=== PATIENT | female | born 2000 | race African-American/Black ===

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

== ENCOUNTER 2021-01-15 12:51 | Emergency (ER) | payer OTHER, SELFPAY ==
[2021-01-15 13:09] VITALS: BP 121/84; PULSE 114; RESP 18; TEMP 37; O2SAT 100
--- NOTE | 2021-01-15 13:39 | ED.URI ---
HPI - URI/Sore Throat General Chief Complaint: Upper Respiratory Infection Stated Complaint: sore throat/ear ache Time Seen by Provider: 01/15/21 13:30 Source: patient Mode of arrival: ambulatory Limitations: no limitations History of Present Illness HPI Narrative: Mendel Morales is a 20 yo female with no PMH who comes [facility] with drainage of right ear that is yellowish-brown in color. Has been draining for about 5 days. Has had increased pain in the ear as well as in the throat and with swallowing. Rates the pain as 9/10. Related Data Home Medications Medication Instructions Recorded Confirmed amitriptyline 25 mg PO HS 11/20/20 01/15/21 medroxyprogesterone 150 mg IM Q3M 11/20/20 01/15/21 topiramate 100 mg PO DAILY 11/20/20 01/15/21 Allergies Allergy/AdvReac Type Severity Reaction Status Date / Time No Known Allergies Allergy Verified 01/15/21 13:14 Review of Systems Review of Systems: Narrative: CONSTITUTIONAL: Denies fever, chills, sweats. EYES: Denies visual changes, redness, discharge. ENT: Denies rhinorrhea, congestion, sore throat, right otalgia. Has sore throat CARDIOVASCULAR: Denies chest pain, palpitations, edema. RESPIRATORY: Denies dyspnea, wheezing, cough GASTROINTESTINAL: Denies abdominal pain, nausea, vomiting, diarrhea. GENITOURINARY: Denies dysuria, hematuria, abnormal discharge SKIN: Denies rash or itching. NEUROLOGIC: Denies numbness, or focal weakness. PSYCHIATRIC: Denies anxiety or depression. PMFSH Past Medical History Medical History (Updated 01/15/21 @ 13:53 by Lizette Perez CNP) Ear pain Family History Family History Mother Diabetes mellitus Hypertension Social History Social History (Updated 01/15/21 @ 13:47 by Lizette Perez CNP) Smoking status: Never smoker Alcohol intake: never Gender identity (if verbalized by the patient): Female Comments At time of signature, I agree with nursing past medical, surgical, social and family history. There is no relevant family history pertinent to the presenting complaint. Exam Narrative: Exam Narrative: GENERAL: This is a well-nourished, well-developed patient, in mild distress. HEAD: normocephalic, atraumatic. EYES: . Sclera clear/white. Vision is grossly intact. EARS: External ears normal, auditory canals clear on L, red with white area in ear canal with yellowish drainage,, TM normal without perforation. Hearing grossly intact. NOSE: External nose normal without nasal discharge, nares without redness, no rhinorrhea. THROAT: Mucous membranes moist, posterior pharynx erythema with no exudate NECK: Neck supple, CARDIOVASCULAR: Regular rate and rhythm without murmurs, gallops, or rubs. RESPIRATORY: Clear to auscultation. Breath sounds equal bilaterally. No wheezes, rales, or rhonchi. GASTROINTESTINAL: Abdomen soft, SKIN: warm, intact with no suspicious lesions or rash, good texture and turgor. NEURO: awake, alert, and oriented to person, place and time. There were no obvious focal neurologic abnormalities. Steady gait EXTREMITIES: Normal range of motion. BACK: Nontender without deformity Course Course Emergency Course: Patient comes to [facility] for complaints of right ear pain with drainage x5 days Started on eardrops to the right ear as well as amoxicillin twice daily Vital Signs Vital signs: Vital Signs Temperature 98.6 F 01/15/21 13:09 Pulse Rate 114 H 01/15/21 13:09 Respiratory Rate 18 01/15/21 13:09 Blood Pressure 121/84 01/15/21 13:09 Pulse Oximetry 100 01/15/21 13:09 Temperature 98.6 F 01/15/21 13:09 Pulse Rate 114 H 01/15/21 13:09 Respiratory Rate 18 01/15/21 13:09 Blood Pressure 121/84 01/15/21 13:09 Pulse Oximetry 100 01/15/21 13:09 MDM - URI/Sore Throat Differential Diagnosis Differential diagnosis: Likely upper respiratory infection, otitis media and other Critical Care Time Critical Ca
== END 2021-01-15 13:59 | disposition home or self-care (01) ==
PROVIDERS: Emergency Provider Nurse Practitioner; PCP Family Medicine
DX: H60.311 Diffuse otitis externa, right ear (principal); J02.9 Acute pharyngitis, unspecified; M41.9 Scoliosis, unspecified
CPT/HCPCS: 99213; G0463

== ENCOUNTER 2021-04-30 17:15 | Emergency (ER) | payer OTHER, SELFPAY | END 2021-04-30 17:25 | disposition left against medical advice (07) | PROVIDERS: Emergency Provider Internal Medicine Hematology & Oncology | DX: Z53.21 Procedure and treatment not carried out due to patient leaving prior to being seen by health care provider (principal) | CPT/HCPCS: 99199 ==

== ENCOUNTER 2021-05-01 08:18 | Emergency (ER) | payer OTHER, SELFPAY ==
[2021-05-01 08:33] VITALS: BP 137/85; PULSE 100; RESP 16; TEMP 37.1; O2SAT 99
[2021-05-01 08:37] VITALS: BP 137/85; PULSE 100; RESP 16; TEMP 37.1; O2SAT 99
--- NOTE | 2021-05-01 08:46 | ED.FEMALEGU ---
HPI - Female Genitourinary General Chief complaint: Urogenital-Female Stated complaint: Side and back Pain Time Seen by Provider: 05/01/21 08:46 Source: patient Mode of arrival: ambulatory Limitations: no limitations History of Present Illness HPI Narrative: Mendel Morales is a 20 yo female with no PMH who comes to urgent care with complaints of left side pain and left lower abdomen pain with urination, denies any vaginal discharge, denies any burning with urination Related Data Home Medications Medication Instructions Recorded Confirmed amitriptyline 25 mg PO HS 11/20/20 05/01/21 medroxyprogesterone 150 mg IM Q3M 11/20/20 05/01/21 topiramate 100 mg PO DAILY 11/20/20 05/01/21 Allergies Allergy/AdvReac Type Severity Reaction Status Date / Time No Known Allergies Allergy Verified 05/01/21 08:32 Review of Systems Review of Systems: CONSTITUTIONAL: Denies fever, chills, sweats. EYES: Denies visual changes, redness, discharge. ENT: Denies rhinorrhea, congestion, sore throat, otalgia. CARDIOVASCULAR: Denies chest pain, palpitations, edema. RESPIRATORY: Denies dyspnea, wheezing, cough GASTROINTESTINAL: Denies abdominal pain, nausea, vomiting, diarrhea. GENITOURINARY: Has dysuria, hematuria, abnormal discharge SKIN: Denies rash or itching. NEUROLOGIC: Denies numbness, or focal weakness. PSYCHIATRIC: Denies anxiety or depression. PMFSH Past Medical History Medical History (Updated 05/01/21 @ 09:00 by Lizette Perez CNP) Ear pain No acute medical problems Family History Family History Mother Diabetes mellitus Hypertension Social History Social History Smoking status: Never smoker Alcohol intake: never Gender identity (if verbalized by the patient): Female Comments At time of signature, I agree with nursing past medical, surgical, social and family history. There is no relevant family history pertinent to the presenting complaint. Exam Narrative: GENERAL: This is a well-nourished, well-developed patient, in mild distress. HEAD: normocephalic, atraumatic. EYES: Sclera clear/white. Vision is grossly intact. EARS: External ears normal, auditory canals clear and without drainage, TMs normal without perforation. Hearing grossly intact. NOSE: External nose normal without nasal discharge, nares without redness, no rhinorrhea. THROAT: Mucous membranes moist, NECK: Neck supple, non-tender CARDIOVASCULAR: Regular rate and rhythm without murmurs, gallops, or rubs. RESPIRATORY: Clear to auscultation. Breath sounds equal bilaterally. No wheezes, rales, or rhonchi. GASTROINTESTINAL: Abdomen soft, nontender SKIN: warm, intact with no suspicious lesions or rash, good texture and turgor. NEURO: awake, alert, and oriented to person, place and time. There were no obvious focal neurologic abnormalities. Steady gait EXTREMITIES: Normal range of motion. BACK: Nontender without deformity Course Course Emergency Course: Patient here with left-sided discomfort and lower side discomfort intermittently; no burning with urination but states that symptoms similar to what she had in the past with a UTI Given Keflex twice daily x3 days-patient to follow-up with primary care physician or [facility] if pain continues Vital Signs Vital signs: Vital Signs Temperature 98.7 F 05/01/21 08:33 Pulse Rate 100 05/01/21 08:33 Respiratory Rate 16 05/01/21 08:33 Blood Pressure 137/85 05/01/21 08:33 Pulse Oximetry 99 05/01/21 08:33 Temperature 98.7 F 05/01/21 08:37 Pulse Rate 100 05/01/21 08:37 Respiratory Rate 16 05/01/21 08:37 Blood Pressure 137/85 05/01/21 08:37 Pulse Oximetry 99 05/01/21 08:37 MDM - Female Genitourinary Differential Diagnosis Differential diagnosis: Likely urinary tract infection, cystitis and other Lab Data Labs: Urine Glucose Negative
== END 2021-05-01 09:15 | disposition home or self-care (01) ==
PROVIDERS: Emergency Provider Nurse Practitioner; PCP Family Medicine
DX: R30.0 Dysuria (principal)
CPT/HCPCS: 81003; 99213; G0463

== ENCOUNTER 2021-09-04 14:50 | Emergency (ER) | payer OTHER, SELFPAY ==
[2021-09-04 15:03] VITALS: BP 128/74; PULSE 102; RESP 16; TEMP 37.6; O2SAT 100
--- NOTE | 2021-09-04 15:07 | ED.URI ---
HPI - URI/Sore Throat General Chief Complaint: Upper Respiratory Infection Stated Complaint: flu symptoms Time Seen by Provider: 09/04/21 15:07 Source: patient, RN notes reviewed and old records reviewed Mode of arrival: ambulatory Limitations: no limitations History of Present Illness HPI Narrative: 20-year-old female presents to the [facility] with complaints of a sore throat without signs drainage for almost a week. Had been using throat drops. Denies fevers, chest pain, abdominal pain. No nausea vomiting or diarrhea. Related Data Home Medications Medication Instructions Recorded Confirmed topiramate 100 mg PO DAILY 11/20/20 09/04/21 amitriptyline 50 mg PO DAILY 09/04/21 09/04/21 norethindrone-e.estradiol-iron 1 tablet PO DAILY 09/04/21 09/04/21 [Aurovela Fe 1.5/30 (28)] Allergies Allergy/AdvReac Type Severity Reaction Status Date / Time No Known Allergies Allergy Verified 09/04/21 15:10 Review of Systems Review of Systems: All systems reviewed & are unremarkable except as noted in HPI and below Constitutional: Constitutional: Reports no additional constitutional complaints, Denies chills, Denies fever(s) and Denies headache(s) Eyes: Eyes: Reports no additional eye complaints ENT: Reports as per HPI, Denies vertigo, Denies dizziness, Denies headache(s), Denies nasal congestion and Reports sore throat Cardiovascular: Cardiovascular: Reports no additional cardiovascular complaints, Denies chest pain, Denies syncope, Denies rapid heart rate and Denies dyspnea Respiratory: Respiratory: Reports no additional respiratory complaints, Denies cough, Denies dyspnea and Denies wheezing Gastrointestinal: Gastrointestinal: Reports no additional gastrointestinal complaints, Denies abdominal pain, Denies diarrhea, Denies nausea and Denies vomiting Musculoskeletal: Musculoskeletal: Reports no additional musculoskeletal complaints and Denies numbness Integumentary/Breasts: Skin/Breast: Reports system reviewed and no additional complaints, except as docu Neurologic: Reports system reviewed and no additional complaints, except as documented, Denies vertigo, Denies dizziness, Denies syncope, Denies headache(s), Denies focal weakness and Denies numbness Psychiatric: Psychiatric: Reports no additional psychiatric complaints Allergic/Immunologic: Allergic/Immunologic: Reports no additional allergic/immunologic complaints and Denies wheezing PMFSH Past Medical History Medical History Ear pain No acute medical problems Family History Family History Mother Diabetes mellitus Hypertension Social History Social History Smoking status: Never smoker Alcohol intake: never Gender identity (if verbalized by the patient): Female Comments At the time of my signature, I reviewed and agree with the nursing past medical, surgical, social, and family history. There is no relevant family history pertinent to the patient complaint. Exam Const: General: cooperative, healthy appearing, no acute distress, well developed and alert Nutritional Appearance: well nourished Orientation/consciousness: patient oriented x3 Limitations: no limitations HENMT: Head: normal to inspection Ears: external ears normal, TM's normal bilaterally and EAC's normal General nose exam: Normal external nose present and Normal nasal mucous membranes and turbinates present Face and sinus: normal facial exam Mouth: Yes Normal oral and palatal mucosa present Throat: posterior oropharynx normal, tonsils normal and uvula midline Eyes: Conjunctivae: conjunctivae normal Pupils: Equal, round and reactive pupils present Neck: Neck: normal visual inspection, no lymphadenopathy and no meningeal signs Chest: Chest palpation & inspection: normal inspection of the chest Resp: Effort & Inspection: normal respiratory ef
== END 2021-09-04 15:25 | disposition home or self-care (01) ==
PROVIDERS: Emergency Provider Nurse Practitioner; PCP Family Medicine
DX: B34.9 Viral infection, unspecified (principal); M41.9 Scoliosis, unspecified
CPT/HCPCS: 87081; 87880; 99213; G0463

== ENCOUNTER 2022-06-03 11:49 | Emergency (ER) | payer OTHER, SELFPAY ==
[2022-06-03 12:06] VITALS: BP 147/76; PULSE 122; RESP 16; TEMP 37.4; O2SAT 99
--- NOTE | 2022-06-03 13:18 | ED.FEMALEGU ---
HPI - Female Genitourinary General Chief complaint: Urogenital-Female Stated complaint: Vaginal Problems Time Seen by Provider: 06/03/22 13:18 Source: patient and RN notes reviewed Mode of arrival: ambulatory Limitations: no limitations History of Present Illness HPI Narrative: 21 y/o female presented for c/o thin white vaginal discharge for 3-4 days. States it feels like previous yeast infection which she gets with recurrent use of sanitary products. She states her last menses ended about 1 week ago. Depo control injection with irregular cycles. Denies itching, urinary complaints, abdominal or flank pain, n/v/d/f/c. Denies unprotected sexual contact. Related Data Home Medications Medication Instructions Recorded Confirmed topiramate 100 mg tablet 100 mg PO DAILY 11/20/20 09/04/21 amitriptyline 50 mg tablet 50 mg PO DAILY 09/04/21 09/04/21 medroxyprogesterone 150 mg/mL mg IM 06/03/22 intramuscular syringe Allergies Allergy/AdvReac Type Severity Reaction Status Date / Time No Known Allergies Allergy Verified 06/03/22 13:07 Review of Systems Review of Systems: CONSTITUTIONAL: Denies body aches, fever, chills, or sweats. CARDIOVASCULAR: Denies chest pain, palpitations, or edema. RESPIRATORY: Denies cough or dyspnea. GASTROINTESTINAL: Denies abdominal pain, nausea, vomiting, or diarrhea. GENITOURINARY: per HPI SKIN: Denies rash, itching, or wounds. MUSCULOSKELETAL: Denies back pain or myalgia. [facility] Past Medical History Medical History Ear pain No acute medical problems Family History Family History Mother Diabetes mellitus Hypertension Social History Social History Smoking status: Never smoker Alcohol intake: never Gender identity (if verbalized by the patient): Female Comments At time of signature, I have reviewed and agree with nursing past medical, surgical, social and family history unless otherwise noted. Please see nursing chart for further information. There is no relevant family history pertinent to the presenting complaint Exam Narrative: GENERAL: Well-appearing ENT: Mucous membranes pink and moist. CHEST: Clear to auscultation. HEART: Regular rate and rhythm. ABDOMEN: Soft, nontender, nondistended, normal active bowel sounds. No CVA tenderness SKIN: Warm, dry, no rash. NEURO: Alert and oriented x3. PSYCH: Normal affect. Course Course Emergency Course: Patient is aware of diagnosis, understands and agrees to treatment plan. Anticipatory guidance given. Patient agrees to follow-up as directed and is aware of reasons to seek care at the emergency department. Portions of this record may have been created with voice recognition software Level of Care: Express Care Visit Vital Signs Vital signs: Vital Signs Temperature 99.3 F 06/03/22 12:06 Pulse Rate 122 H 06/03/22 12:06 Respiratory Rate 16 06/03/22 12:06 Blood Pressure 147/76 H 06/03/22 12:06 Pulse Oximetry 99 06/03/22 12:06 Oxygen Delivery Room Air 06/03/22 12:06 Temperature 99.3 F 06/03/22 12:06 Pulse Rate 122 H 06/03/22 12:06 Respiratory Rate 16 06/03/22 12:06 Blood Pressure 147/76 H 06/03/22 12:06 Pulse Oximetry 99 06/03/22 12:06 Oxygen Delivery Room Air 06/03/22 12:06 Reviewed MDM - Female Genitourinary MDM Narrative Medical decision making narrative: Rx Fluconazole for concern for yeast based on her previous experience. Urine with 2+ Leuks, asymptomatic; urine sent for culture, and GC chlamydia trich. Informed Pt will be contacted w/ results when they become available if they are positive. Discussed with patient that it takes up to 7 days for results of cultures to be released. Pt Declines empiric treatment at this time and will return should tests be positive. I have instructed th
== END 2022-06-03 13:50 | disposition home or self-care (01) ==
PROVIDERS: Emergency Provider Nurse Practitioner Family; PCP Family Medicine
DX: A74.9 Chlamydial infection, unspecified (principal)
CPT/HCPCS: 81003; 87086; 87088; 87147; 87491; 87591; 87661; 99214; G0463

== ENCOUNTER 2022-09-10 19:06 | Emergency (ER) | payer OTHER, SELFPAY ==
[2022-09-10 19:14] VITALS: BP 133/81; PULSE 91; RESP 16; TEMP 37.3; O2SAT 100
--- NOTE | 2022-09-10 19:38 | ED.URI ---
HPI - URI/Sore Throat General Chief Complaint: Upper Respiratory Infection Stated Complaint: URI Time Seen by Provider: 09/10/22 19:38 Source: patient Mode of arrival: ambulatory Limitations: no limitations History of Present Illness HPI Narrative: 21-year-old female presents with complaint of sinus congestion, sinus headache, nasal congestion for 3 days. Denies nausea vomiting diarrhea. No chest pain or shortness of breath. Is taking [id number] sinus medication with no relief. Patient reports she called in to work today and needs a work note. All systems reviewed and negative except as noted above. Related Data Home Medications Medication Instructions Recorded Confirmed topiramate 100 mg tablet 100 mg PO DAILY 11/20/20 09/04/21 amitriptyline 50 mg tablet 50 mg PO DAILY 09/04/21 09/04/21 gabapentin 600 mg tablet mg 09/10/22 norethindrone 1.5 mg-ethinyl tablet 09/10/22 estradiol 30 mcg(21)/iron 75 mg(7) tablet (Junel FE 1.5/30 (28)) nortriptyline 25 mg capsule mg 09/10/22 ubrogepant 100 mg tablet (Ubrelvy) mg 09/10/22 Allergies Allergy/AdvReac Type Severity Reaction Status Date / Time No Known Allergies Allergy Verified 09/10/22 19:08 Review of Systems Review of Systems: CONSTITUTIONAL: Denies fever, chills, or sweats. EYES: Denies visual changes, redness, or discharge. ENT: reports rhinorrhea, congestion, sinus pressure. Denies sore throat, or otalgia. CARDIOVASCULAR: Denies chest pain, palpitations, or edema. RESPIRATORY: Denies cough or dyspnea. GASTROINTESTINAL: Denies abdominal pain, nausea, vomiting, or diarrhea. GENITOURINARY: Denies dysuria or hematuria. SKIN: Denies rash or itching. MUSCULOSKELETAL: Denies back pain, joint pain, or myalgia. NEUROLOGIC: reports headache. Denies numbness, or weakness. PSYCHIATRIC: Denies anxiety or depression. All other systems reviewed are negative, except as documented in HPI. [facility] Past Medical History Medical History Ear pain No acute medical problems Family History Family History Mother Diabetes mellitus Hypertension Social History Social History Smoking status: Never smoker Alcohol intake: never Gender identity (if verbalized by the patient): Female Comments At time of signature, agree with nursing past medical, surgical, social and family history. There is no relevant family history pertinent to the presenting complaint. Exam Narrative: GENERAL: This is a well-nourished, well-developed patient, in no apparent distress. HEAD: normocephalic, atraumatic. EYES: PERRL. Sclera clear/white. Vision is grossly intact. EARS: External ears normal, auditory canals clear and without drainage, TMs normal without perforation. Hearing grossly intact. NOSE: External nose normal with clear nasal drainage, erythema tenderness. No maxillary or sinus tenderness. THROAT: Mucous membranes moist, Clear postnasal drainage. NECK: Neck supple, non-tender without lymphadenopathy, masses or thyromegaly. CARDIOVASCULAR: Regular rate and rhythm without murmurs, gallops, or rubs. RESPIRATORY: Clear to auscultation. Breath sounds equal bilaterally. No wheezes, rales, or rhonchi. SKIN: warm, Dry, intact with no suspicious lesions or rash, good texture and turgor. NEURO: awake, alert, and oriented to person, place and time. There were no obvious focal neurologic abnormalities. EXTREMITIES: No joint tenderness, effusion, or edema noted. Course Course Level of Care: Express Care Visit Vital Signs Vital signs: Vital Signs Temperature 37.3 C 09/10/22 19:14 Pulse Rate 91 09/10/22 19:14 Respiratory Rate 16 09/10/22 19:14 Blood Pressure 133/81 09/10/22 19:14 Pulse Oximetry 100 09/10/22 19:14 Oxygen Delivery Room Air 09/10/22 19:14 Temperature 37.3 C 0
== END 2022-09-10 19:46 | disposition home or self-care (01) ==
PROVIDERS: Emergency Provider Nurse Practitioner Family
DX: J01.90 Acute sinusitis, unspecified (principal)
CPT/HCPCS: 99213; G0463

== ENCOUNTER 2023-08-27 19:01 | Emergency (ER) | payer OTHER, SELFPAY ==
--- NOTE | ~2023-08-27 | XR_ITS ---
EXAMINATION: XR finger 5th RT min 2V DATE: 08/27/2023 19:17 INDICATION: Pain at the right fifth middle phalanx TECHNIQUE: Dorsal palmar, lateral and 2 oblique views of the right fifth digit were obtained COMPARISON: None FINDINGS: Alignment is normal. No fracture. Joint spaces are normal. Soft tissues are unremarkable. IMPRESSION: 1. Negative right fifth digit radiographs. Reviewed, dictated and finalized at location A. ICAL NURSE EDUCATOR
[2023-08-27 19:10] VITALS: BP 141/70; PULSE 98; RESP 16; TEMP 36.7; O2SAT 100
--- NOTE | 2023-08-27 19:27 | ED.UPPEXIN ---
HPI - Extremity Injury (Upper) General Chief Complaint: Extremity Injury, Upper Stated Complaint: Right Hand Pain Time Seen by Provider: 08/27/23 19:03 Source: patient Mode of arrival: ambulatory Limitations: no limitations History of Present Illness HPI narrative: Mendel is a 22-year-old female patient presenting to the clinic today with complaints of right 5th finger pain x 6 days. She reports that she was playing ear hockey in the finger was hip. Is complaining of pain to the distal phalanx of the right 5th finger. Related Data Home Medications Medication Instructions Recorded Confirmed topiramate 100 mg tablet 100 mg PO DAILY 11/20/20 08/27/23 amitriptyline 50 mg tablet 50 mg PO DAILY 09/04/21 08/27/23 ubrogepant 100 mg tablet (Ubrelvy) 100 mg PO DAILY 09/10/22 08/27/23 Allergies Allergy/AdvReac Type Severity Reaction Status Date / Time No Known Allergies Allergy Verified 09/10/22 19:08 Review of Systems Review of Systems: Pertinent positives per HPI. Patient denies any fever, chills, rash, headache, visual changes, dizziness, cough, shortness of breath, chest pain, palpitations, nausea, vomiting, diarrhea, constipation, abdominal pain, or any urinary issues. PMFSH Past Medical History Medical History Ear pain No acute medical problems Family History Family History Mother Diabetes mellitus Hypertension Social History Social History Smoking status: Never smoker Alcohol intake: never Gender identity (if verbalized by the patient): Female Comments At the time of my signature, I reviewed and agree with the nursing past medical, surgical, social, and family history. There is no relevant family history pertinent to the patient complaint. Exam Narrative: General: Well-developed, well nourished, in no apparent distress Head: Normocephalic, atraumatic. Cardio: Regular rate and rhythm, s1 and s2 normal, no murmur appreciated. Resp: Clear to auscultation bilaterally, no rhonchi, rales, wheezing or rubs. Musculoskeletal: No deformity,-tender to palpation over the distal phalanx of the right 5th finger, no bruising or swelling noted, grossly normal range of motion, muscle strength strong and equal, peripheral pulse strong, no edema, no cyanosis, normal gait and station Course Course Emergency Course: Portions of this record may have been created with voice recognition software. Level of Care: Express Care Visit Vital Signs Vital signs: Vital Signs Temperature 36.7 C 08/27/23 19:10 Pulse Rate 98 08/27/23 19:10 Respiratory Rate 16 08/27/23 19:10 Blood Pressure 141/70 H 08/27/23 19:10 Pulse Oximetry 100 08/27/23 19:10 Oxygen Delivery Room Air 08/27/23 19:10 Temperature 36.7 C 08/27/23 19:10 Pulse Rate 98 08/27/23 19:10 Respiratory Rate 16 08/27/23 19:10 Blood Pressure 141/70 H 08/27/23 19:10 Pulse Oximetry 100 08/27/23 19:10 Oxygen Delivery Room Air 08/27/23 19:15 Vital signs reviewed MDM - Extremity Injury (Upper) MDM Narrative Medical decision making narrative: At the time of visit patient is resting comfortably on the exam table. Patient appears to be nontoxic. Diagnostics: X-ray of the right 5th finger was performed and was negative for any sign of fracture or malalignment. Plan supportive measures were discussed with the patient and they voiced understanding discharge instructions and agrees to treatment plan. Return precautions reviewed Differential Diagnosis Differential diagnosis: Likely finger sprain, dislocation of finger and other (Finger fracture) Imaging Data Radiologist's impression: ITS Impressions Finger X-Ray 08/27/23 19:56 IMPRESSION: 1. Negative right fifth digit radiographs. Discharge Plan Discharge Clinical Impr
== END 2023-08-27 20:02 | disposition home or self-care (01) ==
PROVIDERS: Emergency Provider Nurse Practitioner Family; PCP Family Medicine
DX: S60.051A Contusion of right little finger without damage to nail, initial encounter (principal); W22.8XXA Striking against or struck by other objects, initial encounter; M41.9 Scoliosis, unspecified
CPT/HCPCS: 73140; 99213; G0463

== ENCOUNTER 2024-02-15 18:43 | Emergency (ER) | payer OTHER, SELFPAY ==
[2024-02-15 18:50] VITALS: BP 129/69; PULSE 98; RESP 14; TEMP 36.6; O2SAT 99
--- NOTE | 2024-02-15 19:17 | ED.EXTPRO ---
HPI - Extremity Problem General Chief complaint: Extremity Problem,Nontraumatic Stated complaint: Left Hand Pain Time Seen by Provider: 02/15/24 19:17 History of Present Illness HPI Narrative: Patient presents with complaints of left hand pain. She denies any injury or trauma. She does report remote surgery to the left hand as a child. Denies any recent surgeries. She reports pain began couple of weeks ago, is worsening. She has been taking Tylenol and ibuprofen intermittently for her symptoms, poor relief. Pain is most prominent at the thumb and the index finger, dorsal aspect of the hand between the 2. No pain anywhere else. Retains full range of motion. Does not complain any loss of sensation. Related Data Home Medications Medication Instructions Recorded Confirmed topiramate 100 mg tablet 100 mg PO DAILY 11/20/20 02/15/24 amitriptyline 50 mg tablet 50 mg PO DAILY 09/04/21 02/15/24 Allergies Allergy/AdvReac Type Severity Reaction Status Date / Time cefdinir Allergy Intermediate Other Verified 02/15/24 19:00 Review of Systems Review of Systems: All systems reviewed & are unremarkable except as noted in HPI and below Constitutional: Constitutional: Reports no additional constitutional complaints ENT: Reports system reviewed and no additional complaints, except as documented Cardiovascular: Cardiovascular: Reports no additional cardiovascular complaints Respiratory: Respiratory: Reports no additional respiratory complaints Gastrointestinal: Gastrointestinal: Reports no additional gastrointestinal complaints Musculoskeletal: Musculoskeletal: Reports no additional musculoskeletal complaints and Reports as per HPI [facility] Past Medical History Medical History Ear pain No acute medical problems Family History Family History Mother Diabetes mellitus Hypertension Social History Social History Smoking status: Never smoker Alcohol intake: never Gender identity (if verbalized by the patient): Female Exam Const: General: cooperative, no acute distress, alert and awake Orientation/consciousness: oriented to person, oriented to place and oriented to time HENMT: Head: normal to inspection Resp: Effort & Inspection: normal respiratory effort and able to speak in complete sentences Auscultation: clear to auscultation bilaterally, no crackles, no rales, no rhonchi and no wheezes Cardio: Palpation: normal PMI Rate: regular rate Rhythm: regular rhythm Heart sounds: S1 normal heart sound present and S2 normal heart sound present Neuro: General: oriented to person, oriented to place and oriented to time Cranial nerves: Yes CN's II-XII intact bilaterally Extrem: Hand/finger images: 1. tenderness. . No deformity, no bruising, no swelling Psych: Appearance: grossly normal Thought process: Normal thought process present Insight: Good insight present (Psych) Judgement: Good judgement present (Psych) Course Course Level of Care: Express Care Visit Vital Signs Vital signs: Vital Signs Temperature 97.8 F 02/15/24 18:50 Pulse Rate 98 02/15/24 18:50 Respiratory Rate 14 02/15/24 18:50 Blood Pressure 129/69 02/15/24 18:50 Pulse Oximetry 99 02/15/24 18:50 Temperature 97.8 F 02/15/24 18:50 Pulse Rate 98 02/15/24 18:50 Respiratory Rate 14 02/15/24 18:50 Blood Pressure 129/69 02/15/24 18:50 Pulse Oximetry 99 02/15/24 18:50 MDM - Extremity (Nontraumatic) MDM Narrative Medical decision making narrative: patient with complaints of dorsal left hand pain for couple of weeks. Denies any injury or trauma. Right-hand dominant. Palpation the affected area is consistent with tendinitis. Treat with prednisone burst. Patient strongly advised to follow with primary care provider, emergency departme
== END 2024-02-15 19:29 | disposition home or self-care (01) ==
PROVIDERS: Emergency Provider Nurse Practitioner Family; PCP Family Medicine
DX: M77.8 Other enthesopathies, not elsewhere classified (principal)
CPT/HCPCS: 99213; G0463